=== PATIENT | male | born 2000 | race Caucasian/White ===

== ENCOUNTER 2023-12-22 03:26 | Emergency (ER) | payer BC, SELFPAY ==
[2023-12-22 04:08] VITALS: BP 132/82; PULSE 66; RESP 16; TEMP 36.6; O2SAT 100
--- NOTE | 2023-12-22 04:20 | ED.DENTAL ---
HPI - Dental/Oral General Chief complaint: Dental/Oral Stated complaint: Left sided dental pain, facial swelling Time Seen by Provider: 12/22/23 03:31 Source: patient Limitations: no limitations History of Present Illness HPI Narrative: Patient is a 23-year-old male presents to the emergency department complaining of tooth pain in swelling. Patient does throughout the past 24 hours he has been noticing progressive swelling of his left lower jaw and is feel like there is some pain near the tooth where he had a former crown placed. Patient has not been on any recent antibiotics. Patient denies any recent injuries. Patient denies difficulty swallowing, fever, eye pain or vision changes. Patient sees been taking Tylenol and icing it without any significant relief. Related Data Allergies Allergy/AdvReac Type Severity Reaction Status Date / Time No Known Allergies Allergy Unknown Verified 12/22/23 03:27 Review of Systems Review of Systems: A 10 system review of systems was completed on the patient and is negative except for what is stated in the HPI. Nursing and ancillary documentation was reviewed. PMFSH Comments At time of signature, I have reviewed and agree with nursing past medical, surgical, social and family history unless otherwise noted. Please see the nursing chart for further information. There is no relevant family history pertinent to the presenting complaint. Exam Narrative: CONST: No acute distress. Well nourished. HENMT: Head is normocephalic and atraumatic. Moist mucous membranes. No posterior oropharynx erythema. Uvula is midline. EYES: No conjunctival icterus, injection, or pallor. PERRL. NECK: No meningeal signs. No stridor. No significant palpable cervical lymphadenopathy. RESP: Able to speak in full sentences. Normal respiratory effort. CTAB. CARDIO: Regular rate. Regular rhythm. 2+ DP and radial pulses bilaterally. GI: Nondistended. No tenderness to palpation. Soft. SKIN: No rashes or lesions noted on exposed skin. NEURO: Oriented x3. Moves all extremities. EXTREM/MSK/BACK: No pedal edema. PSYCH: Normal affect. HENMT: Teeth image: 1. Tenderness to palpation, scant erythema of the surrounding gingiva, palpable fluctuance is present adjacent to the tooth in the gingiva. Regional swelling is also present of the mandibular region. Course Vital Signs Vital signs: Vital Signs Temperature 97.9 F 12/22/23 04:08 Pulse Rate 66 12/22/23 04:08 Respiratory Rate 16 12/22/23 04:08 Blood Pressure 132/82 12/22/23 04:08 Pulse Oximetry 100 12/22/23 04:08 Temperature 97.9 F 12/22/23 04:08 Pulse Rate 66 12/22/23 04:08 Respiratory Rate 16 12/22/23 04:08 Blood Pressure 132/82 12/22/23 04:08 Pulse Oximetry 100 12/22/23 04:08 Procedures Abscess I/D oral: Date of Incision: 12/22/23 Time of Incision: 05:00 Side (if applicable): left Local Anesthetic: lidocaine 1% and with epi Amount of anesthesia used (mL): 1 Technique: incised with #11 blade and probed loculations Amount of fluid expressed (mL): 2 Irrigation: No Packing used?: none I&D Results: Pus MDM - Dental/Oral MDM Narrative Medical decision making narrative: Patient presents with the above complaint. Initial vitals are remarkable for no significant abnormalities. Physical examination as noted above. Plan discussed: Antibiotics, incision and drainage given the palpable fluctuance, dental follow-up, pain medications, strict return precautions. Patient demonstrates understanding and agreement plan of care. Patient was offered CT and labs and IV antibiotics versus incision and drainage based on palpation and high suspicion for abscess and patient agrees to proceed with oral antibiotics and incision and drainage without IV antibiotics or IV labs or CT imaging. Patient was reassessed at the bedside. Swelling is improved after incision a
[2023-12-22] MEDS: KETOROLAC 30 MG/ML VIAL (*BKC) 15 MG IM (04:33)
[2023-12-22] MEDS: AMOXICILLIN/CLAVULANATE K 875-125 MG TAB 1 TABLET PO (04:34)
[2023-12-22] MEDS: HYDROcodone/acetaminophen (*CRX) 5-325 MG TABLET 1 TAB PO (05:13)
== END 2023-12-22 05:52 | disposition home or self-care (01) ==
PROVIDERS: Emergency Provider Student in an Organized Health Care Education/Training Program
DX: K04.7 Periapical abscess without sinus (principal)
CPT/HCPCS: 41800; 96372; 99283; A9270; J1885

== ENCOUNTER 2025-03-05 08:16 | Emergency (ER) | payer BC, SELFPAY ==
--- NOTE | ~2025-03-05 | XR_ITS ---
EXAMINATION: XR ankle RT min 3V DATE: 03/05/2025 09:29 INDICATION: Right ankle injury TECHNIQUE: Anteroposterior, oblique, mortise, and lateral views of the right ankle were obtained. COMPARISON: None. FINDINGS: Prominent soft tissue swelling about the lateral malleolus. There is 5 mm dorsal/proximal distraction of a small flake-like avulsion fracture fragment arising from the dorsal margin of the navicula. No other fractures identified. Alignment is otherwise normal. Joint spaces are normal. IMPRESSION: 1. Distraction of a small dorsal navicular flake-like avulsion fracture. Reviewed, dictated and finalized at location A.
--- OUTSIDE RECORDS SUMMARY | 2025-03-05 08:18 | XMS_ITS | Clinical Summary ---
Author Organization [facility] Address [address] [place] [address] Care Team Providers Care Document Control Coordinator Name Role Phone Mauri Orosco MD Primary Care Provider [phone] Source Comments [facility],non-owned Affiliates and Associated Physician Practices is amultiple site organization consisting of ambulatory clinics and hospital sitesin [place], [place], [place] and [place]. This disclosure is being madepursuant to the Care Everywhere program and may not contain all information available regarding this patient. Last updated 18.[facility] Allergies Active Allergy Reactions Criticality Noted Date Comments Other 04/07/2013 Seasonal Medications * Be aware that medications may not be up to date on this document. Alwaysverify current medications with the patient. 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 Gender Identity Not on file Sexual Orientation Not on file Plan of Treatment Health Maintenance Due Date Last Done Comments HIV SCREENING 2017 HPV VACCINE (1 - Male 3-dose series) 2017 MENINGOCOCCAL (Group B) VACC INE SHARED DECISION-MAKING (1 of 2 - Standard) 2018 HEPATITIS C SCREENING 01/31/2020 DTAP/TDAP/TD VACCINES (1 - Tdap) 2021 HEPATITIS B VACCINE (1 of 3 - 19+ 3-dose series) 2021 COVID-19 VACCINE (1 - 2023-2 5 season) 2024 DEPRESSION SCREENING 07/27/2024 INFLUENZA VACCINE (#1) 2025 ZOSTER VACCINE (1 of 2) 02/05/2052 HIB VACCINE Aged Out No longer eligi ble based on patient's age to complete this topic MENINGOCOCCAL GROUPS A/C/Y/W VACCINE Aged Out No longer eligible b ased on patient's age to complete this topic PNEUMOCOCCAL VACCINE Aged Out No long er eligible based on patient's age to complete this topic Care Teams Document Control Coordinator Relationship Specialty Start Date End Date Mauri Orosco MD PCP - General Pediatrics 04/05/13
--- OUTSIDE RECORDS SUMMARY | 2025-03-05 08:18 | XMS_ITS | Clinical Summary ---
Author Organization [facility] [place] [address] Address [address] [place] [address] Care Team Providers Care Director It Name Role Phone Esau Ronquillo MD Unavailable [phone] Alfa Cruz MD Primary Care Provide r Allergies No known active allergies Medications aspirin 81 mg enteric coated tablet Take 1 tablet (81 mg total) by mouth daily Active dapagliflozin (FARXIGA) 10 mg tablet Take 1 tablet (10 mg total) by mouth daily Active metFORMIN (GLUCOPHAGE) 1,000 mg tablet Take 1 tablet (1,000 mg total) by mouth 2 (two) times a day with meals Active atorvastatin (LIPITOR) 40 mg tablet Take 1 tablet (40 mg total) by mouth daily 30 tablet 1 2 Active lisinopriL (PRINIVIL,ZEST RIL) 2.5 mg tablet Take 1 tablet (2.5 mg total) by mouth daily 30 tablet 11 2 026 Active insulin glargine (TOUJEO) 300 unit/mL (1.5 mL) pen for injection Inject 40 Units under the skin daily Active Ozempic 2 mg/dose (8 mg/3 mL) pen injector injection Inject 2 mg under the skin 5 Active metoprolol XL (TOPROL-XL) 50 mg extended release tablet TAKE 1 TABLET DAILY 90 tablet 3 5 Active Ozempic 0.25 mg or 0.5 mg(2 mg/1.5 mL) pen injector injection Inject 2 mg under the skin once a week 2 025 Discontinued(Al ternate therapy) metoprolol XL (TOPROL-XL) 50 mg extended release tablet TAKE 1 TABLET DAILY 90 tablet 3 4 025 Discontinued Active Problems Problem Noted Date Diagnosed Date Lipid screening 02/08/2025 Hx of CABG 02/08/2025 Status post coronary artery bypass grafting 10/25 Chest pain 09/25/2021 Hypertension 09/25/2021 Other hyperlipidemia 09/25/2021 Class 2 severe obesity with serious comorbidity in adult 09/25/2021 Coronary artery disease invo lving [place] coronary artery of [place] heart 09/25/2021 Type 2 diabetes mellitus wit h circulatory disorder, with long-term current use of insulin 09/25/2021 Nicotine use disorder 09/25/2021 Encounters Date Type Department Care Team Description 02/08/2025 9:30 AM CDT Office Visit [facility] Cardiology [address] [place] [address] Rosario Vasquez NP Lipid screening (Primary Dx); Hx of CABG; Coronary artery disease involving [place] coronary artery of [place] heart without angina pectoris from Last 3 Months Surgical History Surgery Date Site/Laterality Comments JOINT REPLACEMENT APPENDECTOMY CORONARY ARTERY BYPASS GRAFT 10/01/2021 CABG x 2 Medical History Medical History Date Comments Diabetes mellitus (HCC) Hypertension Coronary artery disease Family History Medical History Relation Name Comments Coronary artery disease Father Coronary artery disease Mother Relation Name Status Comments Father Mother Social History Tobacco Use Types Packs/Day Years Used Date Smoking Tobacco: Former Cigarettes Q uit: 09/25/2013 Smokeless Tobacco: Never Tobacco Cessation:Counseling Given: Not Answered Alcohol Use Standard Drinks/Week Comments Yes 0 (1 standard drink = 0.6 oz pur e alcohol) Sex and Gender Information Value Date Recorded Sex Assigned at Not on file 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 Gender Identity Not on file Sexual Orientation Not on file Obstetrics History Last Filed Vital Signs Vital Sign Reading Time Taken Comments Blood Pressure 108/70 02/08/2025 9:30 AM CDT Pulse 79 02/08/2025 9:30 AM CDT Temperature 36.7 C (98.1 F) 11/07/2021 11:00 AM CDT Respiratory Rate 18 11/07/2021 11:00 AM CDT Oxygen Saturation 97% 02/08/2025 9:30 AM CDT Inhaled Oxygen Concentration - - Weight 111.6 kg (246 lb) 02/08/2025 9:30 AM CDT Height 177.8 cm (5' 10) 02/08/2025 9:30 AM CDT Body Mass Index 35.3 02/08/2025 9:30 AM CDT Plan of Treatment Health Maintenance Due Date Last Done Comments Albumin Creatinine Ratio, Urine 06/27/1964 Colon Cancer Screening-Colonoscopy 06/27/1964 Depression Screening 06/27/1964 Hepatitis C Screening 06/27/1964 Prostate Cancer Screening-PSA 06/27/1964 Dilated Eye Exam 06/28/1964 Foot Exam 06/28/1964 DTaP/Tdap/Td Vaccine (1 - Tdap) 06/27/1975 Hepatitis B Screening 06/27/1982 Regular Well Visit/Exam 18-64 06/27/1982 Pneumococcal vaccine <65 (1 of 2 - PCV) 06/27/1983 Zoster Vaccine (1 of 2) 06/27/2014 Hemoglobin A1C 04/02/2022 09/30/2021 eGFR 10/06/2022 10/06/2021, 09/24, 10/04/2021, Additional history exists Influenza Vaccine (#1) 2025 04/30/2015, 2013 Lipid Panel 02/08/2026 02/08/2025, 08/27, 08/11/2023, Additional history exists Procedures Procedure Name Priority Date/Time Associated Diagnosis Comments POCT LIPID PANEL Routine 02/08/2025 9:34 AM CDT Lipid screening EGFR Routine 10/06/2021 5:29 AM CDT HEMOGLOBIN A1C Routine 09/30/2021 3:34 PM SSIS DEVELOPER from Last 3 Months or Most Recently Relevant to Health Maintenance Results * POCT lipid panel (02/08/2025 9:34 AM CDT) Cholesterol, POC 122 <200 MG/DL HDL, POC 40 >=40 mg/dL Triglycerides, POC 60 <=149 mg/dL LDL Cholesterol POC 70 <=129 mg/dL Chol/HDL Ratio, POC 1.7 NONE Non-HDL Cholesterol, POC 82 NONE mg/dL Cholesterol Total, POC 122 30 - 199 mg/dL Capillary blood 02/08/2025 9 :34 AM CDT Rosario Vasquez NP POINT OF CARE TEST ORDERABLE S Final Result * eGFR (10/06/2021 5:29 AM CDT) Pathologist [facility] eGFR 110 mL/min/1. [address] [facility] Comment: Interpretive Data Reference Interval Normal >/= 90 mL/min/1.73m2 Mildly decreased* 60 - 89 mL/min/1.73m2 Mildly to moderately decreased 45 - 59 mL/min/1.73m2 Moderately to severely decreased 30 - 44 mL/min/1.73m2 Severely decreased 15 - 29 mL/min/1.73m2 Kidney Failure < 15 mL/min/1.73m2 *Relative to young adult level Estimated glomerular filtration rate is determined by the 2020 CKD-EPI equation recommended by the National Kidney Foundation (A Unifying Approach to GFR Estimation: Recommendations of the NKF-ASK Task Force on Reassessing the Inclusion of Race in Diagnosing Kidney Disease, JASN 2020). The CKD-EPI equation should not be used for patients with unstable renal function and has not been validated in children and those over 70. Current interpretive data was last reviewed 2021. Blood 10/06/2021 5:29 AM CDT 10/06/2021 5:29 AM CDT us Suzy ADAM LAB BLOOD ORDERABLES Final R esult [facility] [address] Department [place] [address] * (ABNORMAL) Hemoglobin A1c (09/30/2021 3:34 PM SSIS DEVELOPER) Pathologist [facility] Hgb A1C 7.7(H) 4.0 - 5.6 % [facility] Estimated Average Glucose 174 mg/dL [facility] Comment: The ADA recommends reporting an estimated Average Glucose (eAG) with all Hemoglobin A1c results using the equation derived from a study of 507 normal and diabetic adults. Minority populations were underrepresented and children were not included. (Diabetes Care 31:6786-8512, 2008). The eAG is not equivalent to a fasting glucose. Blood 09/30/2021 3:34 PM SSIS DEVELOPER 09/30/2021 3:44 PM SSIS DEVELOPER us Musa Altamirano MD LAB BLOOD ORDERABLES Final Result [facility] [address] Department [place] [address] from Last 3 Months or Most Recently Relevant to Health Maintenance Insurance [place] [employer] [employer] [place] [employer] [place] Advance Directives For more information, please contact: [phone] * Full Code (Latest Code Status on File) Date Activated Date Inactivated Comments 09/25/2021 6:46 AM 10/07/2021 4:44 PM Care Teams Director It Relationship Specialty Start Date End Date Alfa Cruz MD [address] [address] PCP - General Internal Medicine 02/09/24 Esau Ronquillo MD [address] [address] Referring Physician Cardiology 10/01/21
[2025-03-05 08:26] VITALS: BP 144/59; PULSE 64; RESP 18; TEMP 36.6; O2SAT 100
--- OUTSIDE RECORDS SUMMARY | 2025-03-05 08:47 | XMS_ITS | Clinical Summary ---
Author Organization [facility] Address [address] [place] [address] Care Team Providers Care Boiler Helper Name Role Phone Mauri Orosco MD Primary Care Provider [phone] Source Comments [facility],non-owned Affiliates and Associated Physician Practices is amultiple site organization consisting of ambulatory clinics and hospital sitesin [place], [place], [place] and [place]. This disclosure is being madepursuant to the Care Everywhere program and may not contain all information available regarding this patient. 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
--- OUTSIDE RECORDS SUMMARY | 2025-03-05 08:47 | XMS_ITS | Clinical Summary ---
Author Organization [facility] [place] [address] Address [address] [place] [address] Care Team Providers Care Testing Engineer Name Role Phone Esau Ronquillo MD Unavailable [phone] Alfa Cruz MD Primary Care Provide r [...] adult 09/25/2021 Coronary artery disease invo lving [place] coronary artery of [place] heart 09/25/2021 Type 2 diabetes mellitus wit h circulatory disorder, with long-term current use of insulin 09/25/2021 Nicotine use disorder 09/25/2021 Encounters Date Type Department Care Team Description 02/08/2025 9:30 AM CDT Office Visit [facility] Cardiology [address] [place] [address] Rosario Vasquez NP Lipid screening (Primary Dx); Hx of CABG; Coronary artery disease involving [place] coronary artery of [place] heart without angina pectoris from Last 3 [...] on file Legal Sex Male 1:17 PM 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 [address] [facility] Comment: Interpretive Data Reference Interval Normal [...] ADAM LAB BLOOD ORDERABLES Final R esult [facility] [address] Department [place] [address] * (ABNORMAL) Hemoglobin A1c (09/30/2021 3:34 PM LICENSING ENGINEER) Pathologist [facility] Hgb A1C 7.7(H) 4.0 - 5.6 % [facility] Estimated Average Glucose 174 mg/dL [facility] Comment: The ADA recommends reporting an estimated Average Glucose (eAG) with all Hemoglobin A1c results using the equation derived from a study of 507 normal and diabetic adults. Minority populations were underrepresented and children were not included. (Diabetes Care 31:5353-5449, 2008). The eAG is not equivalent to a fasting glucose. Blood 09/30/2021 3:34 PM LICENSING ENGINEER 09/30/2021 3:44 PM LICENSING ENGINEER us Musa Altamirano MD LAB BLOOD ORDERABLES Final Result [facility] [address] Department [place] [address] from Last 3 Months or Most Recently Relevant to Health Maintenance Insurance [place] [employer] [employer] [place] [employer] [place] Advance Directives For more information, please contact: [phone] * Full Code (Latest Code Status on File) Date Activated Date Inactivated Comments 09/25/2021 6:46 AM 10/07/2021 4:44 PM Care Teams Testing Engineer Relationship Specialty Start Date End Date Alfa Cruz MD [address] [address] PCP - General Internal Medicine 02/09/24 Esau Ronquillo MD [address] [address] Referring Physician Cardiology 10/01/21
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
== END 2025-03-05 10:21 | disposition home or self-care (01) ==
PROVIDERS: Emergency Provider Emergency Medicine
DX: S92.251A Displaced fracture of navicular [scaphoid] of right foot, initial encounter for closed fracture (principal); V59.40XA Driver of pick-up truck or van injured in collision with unspecified motor vehicles in traffic accident, initial encounter
CPT/HCPCS: 73610; 99284

== ENCOUNTER 2025-05-21 19:38 | Emergency (ER) | payer BC, SELFPAY ==
--- NOTE | ~2025-05-21 | XR_ITS ---
XR ankle LT 2V 05/21/2025 20:00 Indication: Left foot pain Procedure: 3 views left ankle Comparison: 04/19/2012 Findings: There are 3 lag screws in the calcaneus. There are corticated ossific densities adjacent to the distal fibula. Mild lateral soft tissue swelling. There is an accessory ossicle at the medial malleolus. No foreign bodies. Impression: 1: Corticated ossific densities at the lateral malleolus, most likely related to remote trauma. Mild lateral soft tissue swelling. Correlate for point tenderness if there is concern for acute fracture. Reviewed, dictated and finalized at location B. Impression: 1: Corticated ossific densities at the lateral malleolus, most likely related t o remote trauma. Mild lateral soft tissue swelling. Correlate for point tendern ess if there is concern for acute fracture.
[2025-05-21 19:46] VITALS: BP 121/85; PULSE 78; RESP 18; TEMP 36.6; O2SAT 98
--- NOTE | 2025-05-21 21:28 | ED_ITS ---
HPI - Extremity Injury (Lower) General Chief Complaint: Extremity Injury, Lower Stated Complaint: ankle pain Time Seen by Provider: 05/21/25 20:57 Source: patient Mode of arrival: ambulatory Limitations: no limitations History of Present Illness HPI Narrative: Patient is a 25-year-old male who presents the ED with report of left ankle pain. Patient reports he stepped into a hole tonight and rolled his left ankle. Complains of pain and swelling to his left lateral ankle. Has been ambulatory, but complains of pain with this. Denies any other injuries. Denies numbness. History of previous left heel fracture with repair. Related Data Allergies Allergy/AdvReac Type Severity Reaction Status Date / Time No Known Allergies Allergy Unknown Verified 03/05/25 08:17 Review of Systems Review of Systems: All systems reviewed & are unremarkable except as noted in HPI. All systems reviewed & are unremarkable except as noted in HPI and below PMFSH Past Medical History Medical History Healthy adult male Surgical History Surgical History History of orthopedic surgery bilateral clavicle, left heel Exam Narrative: GENERAL: Well appearing, well-nourished, non-toxic, in no acute distress. HEAD: Normocephalic, atraumatic. RESPIRATORY: Airway patent, respirations nonlabored. CARDIOVASCULAR: Regular rate and rhythm. Pedal pulses intact and easily palpable MUSCULOSKELETAL: Moves all extremities. Mild swelling and diffuse tenderness throughout left lateral malleoli inferiorly and anteriorly. Sensation intact. Able to wiggle toes. No tenderness along metatarsals. No significant tenderness along medial malleoli SKIN: Warm, dry, normal color. NEURO: A&O X3. Speech clear. Cranial nerves II-XII grossly intact. No ataxic movements. PSYCHIATRIC: Appropriate mood and affect. Normal interaction. Course Vital Signs Vital signs: Vital Signs Temperature 98 F 05/21/25 19:46 Pulse Rate 78 05/21/25 19:46 Respiratory Rate 18 05/21/25 19:46 Blood Pressure 121/85 05/21/25 19:46 Pulse Oximetry 98 05/21/25 19:46 Oxygen Delivery Room Air 05/21/25 19:46 Temperature 98 F 05/21/25 19:46 Pulse Rate 73 05/21/25 22:00 Respiratory Rate 18 05/21/25 22:00 Blood Pressure 118/84 05/21/25 22:00 Pulse Oximetry 100 05/21/25 22:00 Oxygen Delivery Room Air 05/21/25 19:46 MDM - Extremity Injury (Lower) MDM Narrative Medical decision making narrative: Patient?s injury is consistent with musculoskeletal etiology. No signs of neurologic or vascular compromise on physical examination. Compartments are soft without signs of compartment syndrome. XR left ankle showing lesion adjacent to distal fibula, with presence of marked soft tissue swelling, could represent an acute fracture. Patient is acutely tender in this area. Will treat as acute fracture. Placed in short leg posterior splint. Given crutches. Patient is felt to be stable for discharge home and further outpatient management and treatment. Advised to follow-up with orthopedics for further evaluation. Has previously seen an occupational health specialist in [facility]. Advised to call Thursday to make appointment. Discussed rice therapy, strict return precautions. Patient in agreement with plan. Discharged in stable condition. Medical Records Attestation: I reviewed the patient's medical records. Imaging Data Attestation: I personally reviewed and interpreted this imaging study as follows: Radiologist's impression: STAT RAD L ankle: Impression: Pains of the calcaneal bone are noted. There to well corticated lesions adjacent to the distal fibula. These fever the parents of chronic fractures, however there is marked soft tissue swelling of the ankle and as such cannot exclude acute fracture. A small tibiotalar joint effusion is present. No dislocation. No incidental findings. Discharge Plan Discharge Clinical Impression: Fracture of distal end of left fibula Patient Disposition: Home Condition: Stable Instructions: Antibiotic Form, Ankle Fracture (ED), Splint Care (ED) Additional Instructions: Wear splint until seen by orthopedics. Use crutches for assistance with walking. Call office tomorrow to make follow-up appointment. Keep leg elevated as much as possible, frequent icing to ankle. Recommend Tylenol/ibuprofen as needed for pain. Return to the ED if you experience worsening or severe pain, recurrent fall or injury, numbness, or any other symptoms of concern. Patient Language: Slovenian Prescriptions: No Action naproxen 375 mg tablet 375 mg PO BID Qty: 14 0RF amoxicillin-pot clavulanate 875-125 mg tablet 1 tablet PO Q12H 10 Days Qty: 20 0RF acetaminophen 500 mg tablet 500 mg PO Q6H PRN (Reason: pain) Qty: 30 0RF ibuprofen 600 mg tablet 600 mg PO Q6H PRN (Reason: pain) Qty: 30 0RF Follow-up/Referrals: Hussain Fu MD [Physician, Orthopedics] Referral Note: ORTHOPEDICS UNKNOWN,DOCTOR [Primary Care Provider] Stand Alone Forms: Work/School Release IP Time of Disposition: 21:30
[2025-05-21 22:00] VITALS: BP 118/84; PULSE 73; RESP 18; O2SAT 100
== END 2025-05-21 22:11 | disposition home or self-care (01) ==
PROVIDERS: Emergency Provider Physician Assistant
DX: S82.302A Unspecified fracture of lower end of left tibia, initial encounter for closed fracture (principal); S82.832A Other fracture of upper and lower end of left fibula, initial encounter for closed fracture; X50.0XXA Overexertion from strenuous movement or load, initial encounter
CPT/HCPCS: 29515; 73600; 99284

== ENCOUNTER 2025-07-16 12:08 | Emergency (ER) | payer BC, SELFPAY ==
--- NOTE | 2025-07-16 12:10 | ED_ITS ---
HPI - Eye Problem General Chief complaint: Eye Problems Stated complaint: Eye Irritation Time Seen by Provider: 07/16/25 12:10 Source: patient Mode of arrival: ambulatory Limitations: no limitations History of Present Illness HPI Narrative: Patient is a 25-year-old male who presents with right eye irritation and pain for 3 days. Patient did put himself in the eyelid with a guideline fall while doing but not Was actual eyeball. Patient reports pain on the inside of eyelid along with tearing. Denies any blurred vision drainage or redness. Does not wear contacts or glasses Related Data Allergies Allergy/AdvReac Type Severity Reaction Status Date / Time No Known Allergies Allergy Unknown Verified 07/16/25 12:13 Review of Systems Review of Systems: All systems reviewed & are unremarkable except as noted in HPI and below Constitutional: Constitutional: Denies body ache(s), Denies fever(s), Denies headache(s), Denies malaise and Denies weakness Eyes: Eyes: Denies blurry vision, Denies eye discharge, Reports irritation, Denies itchy eyes, Denies loss of vision and Reports eye pain ENT: Denies otalgia, Denies headache(s), Denies nasal discharge, Denies sinus pain and Denies sore throat Cardiovascular: Cardiovascular: Denies chest pain, Denies irregular heart rhythm and Denies dyspnea Respiratory: Respiratory: Denies dyspnea Gastrointestinal: Gastrointestinal: Denies abdominal pain, Denies diarrhea, Denies nausea and Denies vomiting Musculoskeletal: Musculoskeletal: Denies back pain, Denies myalgias and Denies arthralgias Integumentary/Breasts: Skin/Breast: Denies pruritus and Denies rash Neurologic: Denies headache(s), Denies loss of vision and Denies weakness Psychiatric: Psychiatric: Reports no additional psychiatric complaints Allergic/Immunologic: Allergic/Immunologic: Reports itchy eyes PMFSH Past Medical History Medical History Healthy adult male Surgical History Surgical History History of orthopedic surgery bilateral clavicle, left heel Comments At time of signature, agree with nursing past medical, surgical, social and family history. There is no relevant family history pertinent to the presenting complaint. Exam Const: General: cooperative, healthy appearing, comfortable, no acute distress and well nourished Nutritional Appearance: well nourished Orientation/consciousness: patient oriented x3 Limitations: no limitations HENMT: Head: normal to inspection, normocephalic and atraumatic Ears: external ears normal Face/Nose/Sinus: Normal external nose present, normal facial exam and face symmetric Face and sinus: normal facial exam and face symmetric Mouth: Yes lip normal Eyes: General: appearance normal, both eyes and all related structures Visual Contreras: normal visual contreras by confrontation Alignment and Position: alignment normal and position normal Periorbital: periorbital findings normal Eyelids: eyelid abnormality right upper eyelid inflamed cyst internal lid and tenderness Conjunctivae: conjunctivae normal Sclera: sclerae normal Pupils: Equal, round and reactive pupils present EOM: EOMs intact bilaterally Direct Ophthalmoscopy: no photophobia Other: No hyphema, no foreign body under the lids. Neck: Neck: normal visual inspection, full ROM, no lymphadenopathy and no meningeal signs Chest: Chest palpation & inspection: normal inspection of the chest Resp: Effort & Inspection: normal respiratory effort and able to speak in complete sentences Auscultation: clear to auscultation bilaterally Cardio: Rate: regular rate Rhythm: regular rhythm Heart sounds: S1 normal heart sound present and S2 normal heart sound present GI: Inspection: normal to inspection Skin: General skin exam: normal color and no rashes or lesions noted Neuro: General: patient oriented x3, moves all extremities and no meningeal signs Cranial nerves: Yes Equal, round and reactive pupils present Speech: normal speech Gait exam (Neuro): Normal gait present Extrem: General: normal to inspection, full ROM and no edema Psych: Appearance: grossly normal and well kempt Mental Status: mental status grossly normal Speech and movement: Normal speech and movement present Affect: normal affect Attitude: cooperative Thought process: Normal thought process present Course Course Emergency Course: Patient is aware of diagnosis, understands and agrees to treatment plan. Anticipatory guidance given. Patient agrees to follow-up as directed and is aware of reasons to seek care at the emergency department. Portions of this record may have been created with voice recognition software Level of Care: Express Care Visit Vital Signs Vital signs: Vital Signs Temperature 36.7 C 07/16/25 12:18 Pulse Rate 69 07/16/25 12:18 Respiratory Rate 16 07/16/25 12:18 Blood Pressure 143/73 H 07/16/25 12:18 Pulse Oximetry 100 07/16/25 12:18 Temperature 36.7 C 07/16/25 12:18 Pulse Rate 69 07/16/25 12:18 Respiratory Rate 16 07/16/25 12:18 Blood Pressure 143/73 H 07/16/25 12:18 Pulse Oximetry 100 07/16/25 12:18 MDM MDM Narrative Medical decision making narrative: flipping upper eyelid inside inflamed cyst noted. Pen tip size. Did touch with Q-tip to see it was foreign body. Area did not move but patient reports that is where his pain is located. Will treat with antibiotic drops Pt well hydrated appearing, in no respiratory distress, hemodynamically stable. Recommend supportive care. The patient is stable at time of discharge the clinical impression was discussed and the patient was given the opportunity to ask questions, which were addressed as completely as possible given the information available at present. Anticipatory guidance and return to care precautions were discussed and the importance of primary care follow-up was stressed and encouraged. The patient voiced understanding of the plan, indications to return, and the need for follow-up. Exam findings show no acute concerns or changes Patient is appropriate for outpatient treatment and follow-up. Differential Diagnosis Differential Diagnosis: conjunctivitis, blepharitis, stye, chalazion, less likely orbital cellulitis Medical Records I have reviewed the following patient records and this information was taken into consideration when formulating the assessment and plan.: previous clinic visits Discharge Plan Discharge Clinical Impression: Eye infection Qualifiers: Laterality: right Qualified Code(s): H44.001 - Unspecified purulent endophthalmitis, right eye Patient Disposition: Home Condition: Stable Instructions: Stewart (ED) Additional Instructions: Use antibiotic drops is prescribed Apply warm compress to close the lid for 5-10 minutes, 2-4 times daily. Wash lids with a mixture of baby shampoo and water. Consider artificial tears to treat dry eye. Take a Claritin. If eyelid continues to have pain, increased area of redness, or large amounts of crusting around eyelashes follow up with eye doctor. If you have any changes in vision go directly to the emergency department. Chuy: [place]- [phone] [facility] [phone] [place]- [phone] Jocelyn: [facility] [phone] or [phone] [facility] [phone] [facility] [phone] [facility] [phone] [facility]- [phone] Patient Language: Senegalese Prescriptions: New ofloxacin 0.3 % drops See Rx Instructions .ROUTE .COMPLEX Qty: 10 0RF Rx Instructions: put 2 drps into right eye every 2-4 h x 2 days, then 2 drps 4 times/day days 3-7 Follow-up/Referrals: Jostin Luis MD [Physician, Family Practice] Time of Disposition: 12:44
[2025-07-16 12:18] VITALS: BP 143/73; PULSE 69; RESP 16; TEMP 36.7; O2SAT 100
== END 2025-07-16 12:45 | disposition home or self-care (01) ==
PROVIDERS: Emergency Provider Nurse Practitioner Family
DX: H44.001 Unspecified purulent endophthalmitis, right eye (principal)
CPT/HCPCS: 99213; G0463